=== PATIENT | female | born 1995 | race Caucasian/White ===

== ENCOUNTER 2021-12-03 03:11 | Emergency (ER) | payer OTHER, MEDICAID, SELFPAY ==
[2021-12-03] VITALS (7 sets, daily range): BP systolic 109–137; BP diastolic 67–87; PULSE 51–66; RESP 14–21; TEMP 36.3; O2SAT 93–98
--- NOTE | 2021-12-03 03:13 | ED.CHESTPAIN ---
HPI - Chest Pain General Chief Complaint: Chest Pain Stated Complaint: Chest pain/panic attacks/5 days post Time Seen by Provider: 12/03/21 03:13 History of Present Illness HPI narrative: 26-year-old female nonsmoker presents with her and and a chief complaint of feeling anxious with palpitations and chest pressure this morning. She delivered 5 days ago by emergency 39 weeks and 6 days at the [facility]. She went to due to the high risk nature of her as a consequence of her long QT syndrome. She had a relatively normal until the very end when she and baby developed trouble and had C section. She's been very anxious since and hasn't been sleeping or eating. She has been in contact with her providers about post troubles and was en route to this morning when she developed the symptoms as stated. She is also admittedly upset that her is having difficulty latching on. She is not dizzy, weak, or light headed, she denies abdominal pain but is nauseated. Related Data Home Medications Medication Instructions Recorded Confirmed nadolol 20 mg tablet 20 mg PO TID #0 08/06/16 Allergies Allergy/AdvReac Type Severity Reaction Status Date / Time codeine [CODEINE] Allergy Unknown Unverified 01/15/18 12:39 Sulfa (Sulfonamide Allergy Unknown Unverified 01/15/18 12:39 Antibiotics) [SULFA (SULFONAMIDE ANTIBIOTICS)] SADS DATABASE-LONG QT Allergy Unknown Uncoded 01/15/18 12:39 Review of Systems Review of Systems Narrative: GENERAL: Denies chills, fatigue, malaise, fever, sweats. HEENT: Denies sinus pain, ear pain, sore throat, difficulty swallowing, dizziness. RESPIRATORY: Denies dyspnea, cough, wheezing, hemoptysis, sputum. CARDIOVASCULAR: See HPI GASTROINTESTINAL: See HPI : Denies dysuria, frequency, incontinence, hematuria, urinary retention. MUSCULOSKELETAL: denies weakness, joint pain, or bony pain SKIN: Denies rash, skin lesions, or other NEUROLOGIC: Denies weakness, headache, numbness, change in speech, confusion, seizures, incoordination. PSYCHIATRIC: No concerning psychosocial issues. 12 point review of systems is negative except for those stated above Patient History Social History Smoking Status: Never smoker Exam Narrative Exam Narrative: GENERAL: [26 year old patient appears stated age. Well-developed patient, in no obvious distress, tearful, anxious, visibly upset HEAD: Atraumatic. Normocephalic. EYES: Pupils equal round and reactive. Extraocular motions intact. No scleral icterus. No injection or drainage. ENT: Nose without bleeding, purulent drainage. Throat without erythema, tonsillar hypertrophy or exudate. Airway patent. NECK: Trachea midline. Non tender CARDIOVASCULAR: Regular rate and rhythm without murmurs, gallops, or rubs. RESPIRATORY: Clear to auscultation. Breath sounds equal bilaterally. No wheezes, rales, or rhonchi. GASTROINTESTINAL: Abdomen soft, non-tender, nondistended. EXTREMITIES: No edema or joint tenderness. BACK: Nontender without deformity or crepitance. No flank tenderness. NEURO: AOx3. SKIN: No rash or erythema of visible areas Initial Vital Signs Initial Vital Signs: Vital Signs Temperature 97.4 F L 12/03/21 03:20 Pulse Rate 66 12/03/21 03:20 Respiratory Rate 17 12/03/21 03:20 Blood Pressure 137/87 12/03/21 03:20 Pulse Oximetry 98 12/03/21 03:20 Course Orders Ordered: ED Orders 12/03/21 03:20 EKG-12 Lead Stat 12/03/21 04:05 Urine Culture Stat Urine Microscopic Stat Consultations Consultation #1: discussed with OB, they are happy with our evaluation and welcome her to their facility this morning for evaluation including likely [employer] consult. Vital Signs Vital signs: Vital Signs - 8 hr 12/03/21 03:20 12/03/21 03:26 12/03/21 03:30 Temperature 97.4 F L Pulse Rate 66 54 L 52 L Respiratory Rate 17 21 20 Blood Pressure 137/87 Pulse Oximetry 98 98 97 12/03/21 03:56 12/03/21 04:00 12/03/21 04:03 Temperature Pulse Rate 54 L 57 L 51 L Respiratory Rate 21 14 15 Blood Pressure 109/69 112/67 Pulse Oximetry 93 98 97 12/03/21 04:30 Temperature Pulse Rate 58 L Respiratory Rate 21 Blood Pressure 112/72 Pulse Oximetry 97 MDM - Chest Pain Lab Data Labs: Lab Results 12/03/21 Range/Units 04:05 Urine RBC 10-30/hpf H (0-5/HPF) Urine WBC 1-5/hpf (0-5/HPF) Urine Bacteria Occasional (0-1) (None) Ur Culture Indicated? Culture not indicate Micro UA Comment * Urine Dip Bedside Urine Glucose Negative Bedside Urine Bilirubin - Negative Bedside Urine Ketone - Negative Urine Specific [place] 1.020 Bedside Urine Occult Blood +++ Bedside Urine pH 6.0 Bedside Urine Protein +/- 15 Bedside Urine Urobilinogen - Negative Bedside Urine Nitrite - Negative Bedside Urine Leukocytes + 70 Esterase ECG Data Interpretation: Sinus bradycardia without signs of ectopy, rate 53. QTC 459. No ST segmental elevations or depressions MDM Narrative Medical decision making narrative: Patient has very reassuring history and physical exam. Her symptoms resolve nearly immediately upon her arrival here. She is ambulatory to the department and has no ongoing or concerning symptoms. She has been on the media monitor for the duration of her visit and there is no evidence of ectopy, or ischemia. Vitals are reassuring and exam is unremarkable. After lengthy discussion with patient and her we sure the opinion that extensive lab workup is unlikely to change the course. She plans to proceed directly to the [facility]. Questions have been answered to her apparent satisfaction and return precautions have been discussed. Discharge Plan Departure Patient Disposition: Home Clinical Impression: Atypical chest pain, Post depression Instructions: DI for Atypical Chest Pain Activity Restrictions/Additional Instructions: *You have been diagnosed with [atypical chest pain, likely a consequence of anxiety and depression. There is no evidence of significant QT prolongation on your EKG or findings to suggest heart attack, preeclampsia or other significant or life-threatening finding currently. *What to do: *Please continue to take your regular medications as directed. [ ] New medication prescriptions sent to your pharmacy: [ ] [ ] New medication written as a paper prescription [ x] No new medications given *Please follow up with your OB group at the [facility]. As we discussed they are happy to have you come down today, but request to call them why your on the way so they can be ready for you *Return to Emergency Department if you should have any new, worsening or concerning symptoms, such as [fever greater than 101 F, shaking chills, worsening pain, persistent vomiting or other bothersome symptoms] Prescriptions: No Action nadolol 20 MG tablet 20 mg PO TID Qty: 0 0RF
[2021-12-03 04:41] LABS: Bacteria Urine Occasional (0-1); RBC Urine 10-30/HPF (0-5/HPF); WBC Urine 1-5/HPF (0-5/HPF)
== END 2021-12-03 04:55 | disposition home or self-care (01) ==
PROVIDERS: Emergency Provider Emergency Medicine
DX: O90.89 Other complications of the puerperium, not elsewhere classified (principal); R07.89 Other chest pain; O99.345 Other mental disorders complicating the puerperium; F53.0 Postpartum depression
CPT/HCPCS: 81003; 81015; 87077; 87086; 87147; 93005; 99282; 99283